=== PATIENT | male | born 1990 | race Caucasian/White ===

== ENCOUNTER 2017-12-21 00:15 | Emergency (ER) | payer OTHER ==
[2017-12-21 01:36] LABS: Amphetamine Screen,Urine PRESUMPTIVE NEGATIVE; Benzodiazepines Screen,Urine PRESUMPTIVE NEGATIVE; Cannabinoid Screen,Urine PRESUMPTIVE NEGATIVE; Methadone Screen,Urine PRESUMPTIVE NEGATIVE
[2017-12-21 01:37] LABS: Bilirubin,Urine NEG (Negative); Blood,Urine NEG (Negative); Color,Urine Yellow (Yellow); Mucus,Urine 1+ /HPF; Protein,Urine <15 mg/dL mg/dL (Negative)
[2017-12-21 01:53] LABS: Basophils % (Auto) 0.3 % (0.0-1.8); Eosinophils # (Auto) 0.1 K/mm3 (0.0-0.4); Eosinophils % (Auto) 1.2 % (0.0-4.3); Hematocrit 41.7 % (35.5-45.6); Hemoglobin 14.1 gm/dl (11.8-15.2); Lymphocytes % (Auto) 11.1 % (13.4-35.0); Mean Corpuscular HGB Conc 34 % (32-34); Mean Corpuscular Hemoglobin 30 pg (28-32); Mean Corpuscular Volume 88 fl (84-94); Monocytes # (Auto) 0.9 K/mm3 (0.0-0.8); Monocytes % (Auto) 10.6 % (0.0-7.3); Platelet Count 168 K/mm3 (140-440); Red Blood Count 4.74 M/mm3 (3.65-5.03); Red Cell Distribution Width 13.3 % (13.2-15.2)
[2017-12-21 02:01] LABS: Cocaine Screen,Urine PRESUMPTIVE POSITIVE; Opiate Screen,Urine PRESUMPTIVE POSITIVE
[2017-12-21 02:01] LABS: BUN/Creatinine Ratio 21; Blood Urea Nitrogen 15 mg/dL (9-20); Calcium 9.2 mg/dL (8.4-10.2); Hemolysis Index 6
[2017-12-21] MEDS ORDERED: MACROBID PO ONE (19:40)
[2017-12-21] MEDS ORDERED: XANAX PO ONE (19:40)
--- NOTE | 2017-12-21 19:43 | Emergency Department Report ---
HPI - General Chief Complaint: Psych Time Seen by Provider: 12/21/17 19:31 - HPI HPI: 27-year-old C male presents to the emergency department from [facility] for a medical clearance. 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 He last used about 2 days ago and says he is having some withdrawal with generalized body aches, chills and some nausea without vomiting. Apparently he had some preliminary work done over at [facility] and was found to have a low blood sugar at that time. Patient has a history as well of bipolar disorder for which he is noncompliant with his trazodone and Paxil, and he has a history of hepatitis C. He denies any suicidal or homicidal ideations or any hallucinations. ED Past Medical Hx - Past Medical History Hx Seizures: Yes (Drug Induced) Hx Psychiatric Treatment: Yes (Bipolar) Additional medical history: Hepatitis C, - Surgical History Past Surgical History?: No - Social History Smoking Status: Current Every Day Smoker Substance Use Type: Heroin - Medications Home Medications: Home Medications Medication Instructions Recorded Confirmed Last Taken Type Nitrofurantoin Monohyd/M-Cryst 100 mg PO BID #14 capsule 12/21/17 Unknown Rx [Macrobid 100 mg Capsule] ED Review of Systems ROS: Stated complaint: MH Other details as noted in HPI Comment: All other systems reviewed and negative Constitutional: chills. denies: fever Eyes: denies: eye pain, eye discharge, vision change ENT: denies: ear pain, throat pain Respiratory: denies: cough, shortness of breath, wheezing Cardiovascular: denies: chest pain, palpitations Gastrointestinal: denies: abdominal pain, nausea, diarrhea Genitourinary: denies: dysuria, discharge Musculoskeletal: myalgia. denies: joint swelling Skin: denies: rash, lesions Neurological: denies: headache, weakness, paresthesias Physical Exam - Physical Exam Vital Signs: Vital Signs 12/21/17 12/21/17 12/21/17 00:23 07:37 07:42 Temperature 99.4 F 98.3 F 98.2 F Pulse Rate 104 H 77 82 Respiratory 20 15 18 Rate Blood Pressure 132/81 Blood Pressure 114/74 100/79 [Right] O2 Sat by Pulse 100 99 97 Oximetry Physical Exam: GENERAL: The patient is well-developed well-nourished. HENT: Normocephalic. Atraumatic. Patient has moist mucous membranes. EYES: Extraocular motions are intact. Pupils equal reactive to light bilaterally. NECK: Supple. Trachea is midline. CHEST/LUNGS: Clear to auscultation. There is no respiratory distress noted. HEART/CARDIOVASCULAR: Regular. There is no tachycardia. There is no murmur. ABDOMEN: Abdomen is soft, nontender. Patient has normal bowel sounds. There is no abdominal distention. SKIN: Skin is warm and dry. There are many small puncture wound seen to the upper extremities, worst in crux of the elbow, but no current bleeding or any signs of infection. NEURO: The patient is awake, alert, and oriented. The patient is cooperative. The patient has no focal neurologic deficits. The patient has normal speech. MUSCULOSKELETAL: There is no tenderness or deformity. There is no limitation range of motion. There is no evidence of acute injury. ED Course Vital Signs 12/21/17 12/21/17 12/21/17 00:23 07:37 07:42 Temperature 99.4 F 98.3 F 98.2 F Pulse Rate 104 H 77 82 Respiratory 20 15 18 Rate Blood Pressure 132/81 Blood Pressure 114/74 100/79 [Right] O2 Sat by Pulse 100 99 97 Oximetry ED Medical Decision Making - Lab Data Result diagrams: 12/21/17 01:14 12/21/17 01:14 - Medical Decision Making Patient was sent in for a medical clearance from [facility]. Labs are mostly unremarkable except for a mild urinary tract infection seen. UDS positive for opiates and cocaine but the patient admits to using both recently. He says he is having withdrawal but he does not appear to be experiencing any type of hallucinations or delusions. Vital signs stable including being afebrile. He was given a dose of Xanax to help with the withdrawal, Toradol for body aches and a dose of Macrobid for the urinary tract infection. Patient appears medically cleared for psychiatric placement and will be sent back to [facility] with a prescription for Macrobid. - Differential Diagnosis opiate withdrawal, bipolar disorder, polysubstance abuse Critical Care Time: No Critical care attestation.: If time is entered above; I have spent that time in minutes in the direct care of this critically ill patient, excluding procedure time. ED Disposition Clinical Impression: Opiate withdrawal, Body aches, History of intravenous drug abuse UTI (urinary tract infection) Qualifiers: Urinary tract infection type: acute cystitis Hematuria presence: without hematuria Qualified Code(s): N30.00 - Acute cystitis without hematuria Disposition: [id number]/TX-[id number] PSY HOSP/PSY UNIT Is pt being admited?: No Condition: Stable Instructions: Urinary Tract Infection in Men (ED), Opioid Withdrawal (ED) Additional Instructions: Please follow up with a primary care physician once you are done with [facility]. Take the antibiotics as prescribed. Return to the emergency Department with any worsening of your symptoms or any acute distress. Prescriptions: Nitrofurantoin Monohyd/M-Cryst [Macrobid 100 mg Capsule] 100 mg PO BID #14 capsule Referrals: PRIMARY CARE [Primary Care Provider] - [facility] Time of Disposition: 20:45
[2017-12-21] MEDS ORDERED: TORADOL IM ONE (19:50)
[2017-12-21 20:30] LABS: Alanine Aminotransferase 45 units/L (7-56); Albumin 4.4 g/dL (3.9-5); Bilirubin,Direct < 0.2 mg/dL (0-0.2)
[2017-12-21 20:40] VITALS: BP 127/83
== END 2017-12-22 00:41 ==
LOC: ED 00:15
DX: N39.0 Urinary tract infection, site not specified (principal); F11.93 Opioid use, unspecified with withdrawal; F31.9 Bipolar disorder, unspecified; F17.200 Nicotine dependence, unspecified, uncomplicated; Z86.19 Personal history of other infectious and parasitic diseases
CPT/HCPCS: 36415; 80048; 80074; 80307; 81001; 82962; 85025; 96372; 99285; G0480; J1885; 80320